=== PATIENT | female | born 1945 | race Caucasian/White ===

== ENCOUNTER 2016-09-05 14:12 | Observation (INO) | payer MEDICARE ==
[~2016-09-05] VITALS: Ht 154.9 cm; Wt 110.9 kg
[2016-09-05] VITALS (10 sets, daily range): BP systolic 96–127; BP diastolic 34–80; PULSE 80–108; RESP 12–23; O2SAT 96–100
[2016-09-05 15:01] LABS: BASOPHILS % (AUTO) 0.2 % (0-3); EOSINOPHILS % (AUTO) 0.9 % (0-5); MONOCYTES % (AUTO) 4.7 % (4-12); Mean Corpuscular Hemoglobin 29.5 pg (27.0-35.0); Mean Corpuscular Volume 90.6 fL (81-100); NEUTROPHILS % (AUTO) 90.1 % (40-74); Platelet Count 188 bil/L (150-400)
--- NOTE | 2016-09-05 15:18 | DRSVH ---
PROCEDURE: X-RAY CHEST ONE VIEW, PORTABLE ([id number]) INDICATIONS: near syncope TECHNIQUE: One view of the chest was acquired. COMPARISON: [facility], , CHEST 2VW, 03/15/2014, 12:50. FINDINGS: Surgical changes and devices: None. Lungs and pleura: No pleural effusions or pneumothorax. Lungs are clear. Large nonreducible hiatal hernia redemonstrated. Mediastinum: Mediastinal contours appear normal. Heart size is normal. Bones and chest wall: No suspicious bony lesions. Overlying soft tissues appear unremarkable. IMPRESSION: Large hiatal hernia. No acute cardiopulmonary process. Dictated by: Antonio Sandra [facility] Interpreted: Mireya Nova MD on 09/05/2016 at 15:12 Approved by: Mireya Nova MD, PhD on 09/05/2016 at 15:15
--- NOTE | 2016-09-05 15:20 | ED.REPORT ---
HPI-General Illness Date of Service Sep 05, 2016 ED Provider: Dr. Scotty Hernandez MD A 71 year old female with a history of hypertension and hyperlipidemia presents to the ED via EMS following a near-syncopal episode that occurred 2 hours prior to arrival. Her symptoms began while she was at work. The episode was also associated with nausea, 1 episode of diarrhea, diaphoresis and pale skin. She felt completely normal prior to symptom onset this afternoon. Patient denies any recent sick contacts. She denies hematochezia, dysuria, chest pain or current abdominal pain. Patient currently takes omeprazole and an unknown BP medication. Nursing Notes Stated Complaint: NEAR SYNCOPE Chief Complaint: Female Abdominal Pain Nursing Notes Reviewed: Yes Allergies: Coded Allergies: Sulfa (Sulfonamide Antibiotics) (Verified Allergy, Unknown, 09/05/16) Scheduled Atorvastatin Calcium (Atorvastatin Calcium) 10 Mg Tablet 10 MG PO QAM Losartan Potassium (Losartan Potassium) 50 Mg Tablet 50 MG PO QAM Omeprazole (Omeprazole) 40 Mg Capsule.dr 40 MG PO QAM General Time Seen by MD: 15:19 Chief Complaint Other (Near-syncope ) Hx Obtained From: Patient Arrived By: Walk-in Sudden in Onset?: Yes Onset Occurred: 1 - 4 hours ago (2 hours prior) Symptom Duration: Since onset Location: No: Abdomen, Chest Associated with: Reports: Diaphoresis, Nausea, Vomiting, Denies: Abdominal pain, Chest pain, Fever Pertinent Negative: Pt denies other symptoms Recent Healthcare: No recent doctor visit, No recent hospitalization Past Medical History Past Medical History Notes: PCP: Dr. Glenis Lira MD Past Medical History Hypertension Hyperlipidemia Reports heart murmur Past Surgical History Gastrocnemius slide lengthening Resection of the posterior calcaneal exostoses w/ Achilles Tendon Smoking History Unknown if Ever Smoker Social History Other Social History: Good social support, Local resident Ambulatory Status Independent Review of Systems Pale skin Full Review of Systems Constitutional: Denies: Chills, Fever Cardiovascular: Denies: Chest pain GI: Reports: Diarrhea, Nausea, Denies: Abdominal pain, Hematochezia Female: Denies: Dysuria Skin: Reports Diaphoresis Neurologic: Reports: Syncope (Near syncope ) Complete sys rev & neg: except as marked. Physical Exam Vital Signs Vital Signs Date Time Temp Pulse Resp B/P Pulse Ox O2 Delivery O2 Flow Rate FiO2 09/05/16 23:05 103 18 96/43 98 Room Air 09/05/16 21:06 36.9 107 21 110/46 96 Room Air 09/05/16 19:52 37.8 09/05/16 19:46 108 23 127/46 97 Room Air 09/05/16 17:30 106 21 120/35 100 09/05/16 17:04 100 23 114/42 100 09/05/16 17:04 104 19 108/59 100 09/05/16 17:00 101 20 114/42 99 09/05/16 16:30 98 21 123/49 99 Room Air 09/05/16 16:15 100 23 122/47 96 Room Air 09/05/16 16:00 96 22 123/34 100 Room Air 09/05/16 14:25 36.4 80 12 126/80 100 Room Air Initial VS: Reviewed Neck: Supple, Non-tender, Full range of motion Extremities: Vascular intact, Neuro intact, No swelling, No tenderness Skin: Warm, Dry, No cyanosis Neurologic: Alert, Oriented, Nonfocal Psychiatric: Mood/affect normal, Behavior normal, Normal thought content General/Constitutional: Awake, Alert, No acute distress Head / Eyes: Atraumatic, Normocephalic, PERRL ENT: Atraumatic, Airway patent Mouth: Positive: Mucous membranes dry Respiratory / Chest: Atraumatic, Breath sounds NL, Breath sounds = bilat, No respiratory distress Cardiovascular: Heart rate NL, Regular rhythm, Heart sounds NL, No gallop, No murmurs, No rubs Abdomen: Atraumatic, Soft, Non-tender, BS normoactive, No distention Interpretation & Diagnostics Lab Results Interpretation Result Diagram: 09/05/16 1452 09/05/16 1452 Test 09/05/16 14:52 White Blood Count 9.8th/mm3 (3.8-10.1) Red Blood Count 4.47mil/mm3 (3.90-5.20) Hemoglobin 13.2g/dL (12.0-15.6) Hematocrit 40.5% (35.0-46.0) Mean Corpuscular Volume 90.6fL (81-100) Mean Corpuscular Hemoglobin 29.5pg (27.0-35.0) Mean Corpuscular Hemoglobin Concent 32.6% (32.0-37.0) Red Cell Distribution Width 13.4% (12.3-15.4) Platelet Count 188bil/L (150-400) Neutrophils (%) (Auto) 90.1% (40-74) Lymphocytes (%) (Auto) 3.9% (14-46) Monocytes (%) (Auto) 4.7% (4-12) Eosinophils (%) (Auto) 0.9% (0-5) Basophils (%) (Auto) 0.2% (0-3) Sodium Level 139mEq/L (134-144) Potassium Level 4.1mEq/L (3.5-5.2) Chloride Level 101mEq/L (97-108) Carbon Dioxide Level 23mmol/L (18-29) Blood Urea Nitrogen 31mg/dL (8-27) Creatinine 0.85mg/dL (0.57-1.00) Estimat Glomerular Filtration Rate 94mL/min (>59) Glucose Level 139mg/dL (60-99) Calcium Level 9.5mg/dL (8.5-10.1) Magnesium Level 1.9mg/dL (1.6-2.6) Total Bilirubin 0.6mg/dL (0.0-1.2) Aspartate Amino Transf (AST/SGOT) 20U/L (0-50) Alanine Aminotransferase (ALT/SGPT) 16U/L (0-32) Alkaline Phosphatase 92U/L (25-165) Troponin T < 0.010ug/L (0.0-0.011) Total Protein 7.2g/dL (6.4-8.4) Albumin 4.4g/dL (3.4-5.0) Hold Franks Top Tube Received (Received) ECG Interpretation ECG Interpretation: Sinus Rhythm Rate 94 Time: 15:15 Interpreted by: ED physician X-Ray Chest Interpretation Chest Xray Interpretation: IMPRESSION: Large hiatal hernia. No acute cardiopulmonary process. Dictated by: Antonio Sandra RRMadisyn Interpreted: Mireya Nova MD on 09/05/2016 at 15:12 Interpretation / Wet Read by: Interpret - Radiologist Re-Eval/Medical Decision Med Decision/Clinical Course 71-year-old female with near syncope followed by vomiting and diarrhea. At Continued to have some nausea here in the emergency department with diarrhea has not recurred. Seemed most likely to be gastroenteritis. Her abdomen is nontender exam and otherwise reassuring she is not orthostatic. Patient felt better after getting ondansetron Phenergan and a liter of saline. She still did not feel steady on her feet however, was not able to ambulate without using a walker to steady herself and does not use a walker at baseline. She and her family were prefer that she was observed overnight and given her unsteadiness and persistent nausea this seems completely reasonable. CODE STATUS was discussed she wishes to be full code. Time of Eval: 17:05 Re-Evaluation/Progress Note: Nausea is still present. She is informed of the various options to keep her hydrated. Time of Eval: 17:45 Patient Status: Mild relief Re-Evaluation/Progress Note: Pt had one episode of emesis prior to the oral nausea medication. Her symptoms have improved. She is informed of her results. Time of Eval: 19:22 Patient Status: Condition improved Re-Evaluation/Progress Note: Pt's nausea has improved and she denies any more episodes of diarrhea. She is agreeable to discharge at this time, however, family is insistent on admission for observation. Time of Eval: 23:07 Patient Status: Condition improved Re-Evaluation/Progress Note: Code status is discussed in the presence of family. She would like to be full code. Consultation : Referral / Consult Name: Roselyn Diaz DO Consulted With: Hospitalist Call Returned at: 21:27 Outside Salesman: Will see patient, Agrees with eval, Agrees with plan, Accepts admit Counseled Regarding: Diagnosis, Lab results, Need for admission Discharge & Departure Primary Impression: Acute gastroenteritis Additional Impression: Vomiting and diarrhea Disposition: ADMITTED TO HOSPITAL Discharge Condition All VS Reviewed: Yes Condition: Improved Referrals: Glenis Lira MD (PCP) Jeniffer Attestation Portions of this note were transcribed by Fabiola Langston. I, Dr. Hernandez personally performed the history, physical exam and medical decision-making; I reviewed and confirmed the accuracy of the information in the transcribed note. Signed by: Jeniffer Andersen, 09/05/16 2210. copies to: Glenis Lira MD, Donald L MD Sep 05, 2016 15:20 FABIOLA LANGSTON Sep 05, 2016 16:02
[2016-09-05 15:33] LABS: TROPONIN T < 0.010 ug/L (0.0-0.011)
[2016-09-05 15:39] LABS: Magnesium 1.9 mg/dL (1.6-2.6)
[2016-09-05] MEDS ORDERED: 0.9% Sodium Chloride 1,000 ML IV ONE ×2 (15:55→21:05)
[2016-09-05] MEDS ORDERED: OMEP40CA36 PO (20:41)
[2016-09-05] MEDS ORDERED: ATOR10TA66 PO (20:41)
[2016-09-05] MEDS ORDERED: LOSA50TA37 PO (20:41)
[2016-09-05] MEDS ORDERED: 0.9% Sodium Chloride 1,000 ML IV SCH (23:06)
[2016-09-05] MEDS ORDERED: Alum-Mag Hydrox-Simeth 30 mL Suspension PO PRN (23:10)
[2016-09-05] MEDS ORDERED: Ondansetron 2 mg/mL 2 mL Inj IVPUSH PRN (23:10)
[2016-09-06 00:24] VITALS: BP 100/51; PULSE 102; RESP 20; O2SAT 98
[2016-09-06 00:30] VITALS: BP 110/69; PULSE 94; RESP 16; O2SAT 96
--- NOTE | 2016-09-06 02:44 | PCM.HPMED ---
Subjective Date of Service Sep 06, 2016 Primary Provider: Admitting Physician: Roselyn Diaz DO Primary Care Physician: Glenis Lira MD Attending Physician: Roselyn Diaz DO Admit Status: From the Emergency Department Chief Complaint: Presyncopal event History of Present Illness: This is a 71-year-old female with past medical history significant for hypertension and hyperlipidemia who presents for presyncopal episode. The patient states that she was in her normal health until yesterday afternoon when she began to feel nauseated. At that time she developed several episodes of diarrhea without hematochezia or melena accompanied by several episodes of vomiting that was nonbloody. After this she felt diaphoretic and coworkers stated that she had pale skin. At that point she felt like she was going to "pass out" but did not lose consciousness. She denies any contacts with similar illness or recent travel outside the country. She denies any chest pain or pressure, confusion, numbness or tingling in extremities, weakness in extremities, visual changes, headache. In the emergency department initial vitals were temperature 36.4 Celsius, pulse 80, respiratory rate 12, blood pressure 126/80, satting at 100% on room air. Initial laboratory values were significant for WBC of 9.8 with neutrophil 90.1% . BUN 31, creatinine 0.5, glucose 139. Troponin less than 0.010. EKG showed sinus rhythm with rate of 90 and QTC of 507. In the emergency department she received 2 boluses of normal saline, Phenergan, and Tylenol. Patient states that after receiving these medications she felt much improved. Allergies Coded Allergies: Sulfa (Sulfonamide Antibiotics) (Verified Allergy, Unknown, 09/05/16) Home Medications Atorvastatin Losartan Omeprazole PMH Hypertension Hyperlipidemia GERD Surgical History Total knee replacement right Family History Mom of "stomach issues." Father of cancer (unknown type) Social History Hx Alcohol Use: No Hx Substance Use: No Smoking Status: Unknown if Ever Smoker Exam Vital Signs Vital Sign - Last Date Time Temp Pulse Resp B/P Pulse Ox O2 Delivery O2 Flow Rate FiO2 09/06/16 00:24 36.9 102 20 100/51 98 Room Air Intake and Output 09/05/16 09/05/16 09/06/16 Cumulative From/Thru 15:00 23:00 07:00 09/05/16 14:25 - 09/06/16 01:42 Intake Total 1000 ml 1000 ml Balance 1000 ml 1000 ml Intake IV Total 1000 ml 1000 ml Exam General: No acute distress, well-developed, well-nourished, appropriately interactive HEENT: Normocephalic, atraumatic. External ears without defect. Pupils equal, round, and reactive to light and accommodation. Anicteric sclerae, moist conjunctivae, and no lid lag. Oropharynx free of erythema and cobble stoning with moist mucosa. Neck: Supple with full range of motion. No jugular venous distension. No bruits. No lymphadenopathy or thyromegaly. Cardiovascular: Regular rate and rhythm with no murmurs, rubs, or gallops appreciated Pulmonary: Clear to auscultation bilaterally with no crackles, wheezes, or rhonchi. Normal respiratory effort with no use of accessory muscles. Abdomen: Bowel tones present. Soft, nontender, nondistended. No hepatosplenomegaly or masses appreciated. Extremities: No clubbing, cyanosis, edema, or lymphadenopathy appreciated. Skin: Normal temperature, turgor, and texture; no rash, ulcers, or subcutaneous nodules appreciated. Neurological: Cranial nerves grossly intact. Normal muscle strength, tone, and bulk. Reflexes, coordination, and sensory function within normal limits. No known gait impairment. Psychiatric: Normal mood and affect. Alert and oriented to person, place, and time. Lab and Diagnostics Result Diagram: 09/05/16 1452 09/05/16 1452 Assessment & Plan This is a 71-year-old female with past medical history significant for hypertension and hyperlipidemia who presents after nausea, vomiting, and diarrhea with subsequent presyncopal event. The presyncopal event was likely due to orthostatic hypotension or vasovagal. Differential includes arrhythmia, myocardial infarction, CVA/TIA. Presyncopal event, present on admission, ongoing: -Patient has no focal neurological deficits. EKG is sinus rhythm. Troponins were negative. -This is likely due to orthostatic hypotension versus vasovagal. -Patient declines telemetry -Possible need for CT of the head discussed the patient and she declines this. -Day team can consider MRI or CT of head. -Trend troponin 2. Long QT, present on admission, ongoing: -QTc of 507 -Avoid QT prolonging medications. -Telemetry ordered. Hypertension, present on admission, ongoing: -On admission blood pressure was 126/80. -Continue losartan Hyperlipidemia, present on admission, ongoing: -Continue atorvastatin. Elevated blood glucose level, present on admission: -A1c ordered. Gastric esophageal reflux disease, present on admission, ongoing: -Omeprazole ordered. DVT prophylaxis with Lovenox. Patient is admitted under observation status with expected length of stay less than 2 midnights due to severity of presenting symptoms, risk of adverse event, and complexity of treatment plan. Pain Evaluation: Adequate Pain Control Resuscitation Status: CPR: Attempt Resuscitation Attending Statement The patient was seen and examined together with house staff on 09/06/2016 and I agree with the history, exam and plan as outlined in the note above. Lui Montenegro DO Sep 06, 2016 02:44 Roselyn Diaz DO Sep 06, 2016 06:53
--- NOTE | 2016-09-06 03:18 | NUR ---
Admit to Room 1027 Patient arrived to room [address] [facility] accompanied by ED staff and co-worker. Patient denies n/v and pain. VSS. Patient answered assessment questions appropriately. Patient oriented to room and call light. Call light within reach. Care continues.
[2016-09-06] MEDS ORDERED: Alum-Mag Hydrox-Simeth 30 mL Suspension PO PRN (03:55)
[2016-09-06] MEDS ORDERED: Polyethylene Glycol (PEG) 17 Gm Powder PO PRN (03:55)
[2016-09-06 05:00] VITALS: BP 132/83; PULSE 89; O2SAT 97
[2016-09-06 06:35] LABS: BASOPHILS % (AUTO) 0 % (0-3); EOSINOPHILS % (AUTO) 0.5 % (0-5); Mean Corpuscular Hemoglobin 28.9 pg (27.0-35.0); Mean Corpuscular Volume 91.4 fL (81-100); NEUTROPHILS % (AUTO) 82.6 % (40-74); Platelet Count 146 bil/L (150-400)
[2016-09-06 06:41] LABS: TROPONIN T 0.01 ug/L (0.0-0.011)
[2016-09-06 08:55] LABS: APPEARANCE,URINE HAZY (CLEAR,HAZY); COLOR,URINE YELLOW (YELLOW); OCCULT BLOOD,URINE NEGATIVE (NEGATIVE); UROBILINOGEN,URINE NORMAL (NORMAL)
[2016-09-06 09:23] LABS: APPEARANCE,URINE HAZY (CLEAR,HAZY); COLOR,URINE YELLOW (YELLOW); OCCULT BLOOD,URINE NEGATIVE (NEGATIVE); UROBILINOGEN,URINE NORMAL (NORMAL)
--- NOTE | 2016-09-06 10:55 | NUR ---
Case Management- CALVILLO explained and signed by patient at 1027AM. Copy given to patient. Original placed in chart. Milvia Montgomery RN/ UR
[2016-09-06 13:19] VITALS: BP 146/70; PULSE 87; RESP 18; O2SAT 95
[2016-09-06] MEDS: 0.9% Sodium Chloride 1,000 ML IV SCH ×2 (14:09→17:13)
--- NOTE | 2016-09-06 14:42 | NUR ---
Social Work: Initial Assessment D: EMR reviewed. Pt is a 71 y/o female Gladys for intractable nausea per H&P. CELIA met with pt and bedside to conduct initial assessment. Pt was alert and oriented x3. SW confirmed pt has completed DPOA/advanced directive ppw and encouraged pt to provide completed copy to the hospital. Pt's primary contact is sister rUiel Chavez ([phone]) and can be contacted for discharge planning. Pt's insurance is [employer] and PCP is Glenis Lira MD. Pt has hx at [facility] in [place]. Pt has HH hx with [facility] for RN PT OT. Pt does not have LT insurance or VA benefits. Pt does not own or use any DME. Pt is independent with ADLs. Pt lives at home alone in a multi-story home - with 4 steps to enter and 13 steps to the second level - in [place]. Pt confirmed her niece will provide transport home via POV when pt is medically stable. SW does not anticipate any discharge needs at this time but will continue to follow if needs arise. A: Pt who is independent at baseline. P: Pt confirmed her niece will provide transport home via POV when pt is medically stable. SW does not anticipate any discharge needs at this time but will continue to follow if needs arise. IDA Grey Addendum: 09/06/16 at 1446 by DISHA COMER SS Amended: Links added.
--- NOTE | 2016-09-06 14:47 | NUR ---
Mobility/Memory Patient feeling weak this shift. Ambulating from bed to toilet with FWW. Exhibits some weakness, but able to complete ADL's. Patient is very forgetful. Needs redirection and consistent verbal reminders.
[2016-09-06 20:52] VITALS: BP 137/81; PULSE 86; RESP 19; O2SAT 97
--- NOTE | 2016-09-06 22:03 | NUR ---
Abdominal Pain Patient complains of 4/10 abdominal pain, and has asked if heat could be tried to soothe stomach upset. Night hospitalist notified, and a K Pad has been ordered for patient, and is being used. Patient is currently sleeping and has not complained of stomach pain since K pad has been placed. Will continue to monitor and continue Q1 hour checks.
[2016-09-07] MEDS: 0.9% Sodium Chloride 1,000 ML IV SCH (00:56)
[2016-09-07 01:10] VITALS: BP 146/87; PULSE 87; RESP 17; O2SAT 96
[2016-09-07 05:29] VITALS: BP 151/80; PULSE 86; RESP 18; O2SAT 95
[2016-09-07] MEDS ORDERED: Pantoprazole 40 mg ER24 Tablet PO SCH (06:30)
[2016-09-07] MEDS ORDERED: LOPE2CAP PO (12:13)
--- NOTE | 2016-09-07 12:13 | PCM.DIMED ---
Discharge Instructions Date of Service Sep 07, 2016 Dates of Hospitalization Sep 05, 2016 at 23:09 Discharge Diagnosis Discharge Diagnosis # Presyncopal event, present on admission, ongoing: #norovirus gastroenteritis #Hypertension, present on admission, ongoing: #Hyperlipidemia, present on admission, ongoing: #Gastric esophageal reflux disease # prediabetes A1c 5.9 Diet Discharge Diet: No restrictions Activity Discharge Activity: Limited until seen by PCP Call your provider Call your provider for: Fever or Chills, Shortness of breath, Bleeding, Chest pain, Vomitting, Excessive diarrhea, Weakness (unilateral) Patient Instructions Patient Instructions You were hospitalized due to viral( Norovirus ) Gastroenteritis. Please keep yourself hydrated. Please follow-up with PCP in 1 week. Follow-up Provider: Glenis Lira MD Follow-up with PCP in: 1 week Brent Parada MD Sep 07, 2016 12:13
--- NOTE | 2016-09-07 12:20 | PCM.DC.MED ---
Discharge Summary Date of Service Sep 07, 2016 Dates of Hospitalization Date of Hospital Admission Sep 05, 2016 at 23:09 Date of Discharge: Sep 07, 2016 Providers: Admitting Physician: Roselyn Diaz DO Primary Care Physician: Glenis Lira MD Attending Physician: Roselyn Diaz DO Diagnosis at Time of Discharge Diagnosis at Time of Discharge # Presyncopal event, present on admission, ongoing: #norovirus gastroenteritis #Hypertension, present on admission, ongoing: #Hyperlipidemia, present on admission, ongoing: #Gastric esophageal reflux disease # prediabetes A1c 5.9 Brief History per [facility] This is a 71-year-old female with past medical history significant for hypertension and hyperlipidemia who presents for presyncopal episode. The patient states that she was in her normal health until yesterday afternoon when she began to feel nauseated. At that time she developed several episodes of diarrhea without hematochezia or melena accompanied by several episodes of vomiting that was nonbloody. After this she felt diaphoretic and coworkers stated that she had pale skin. At that point she felt like she was going to "pass out" but did not lose consciousness. She denies any contacts with similar illness or recent travel outside the country. She denies any chest pain or pressure, confusion, numbness or tingling in extremities, weakness in extremities, visual changes, headache. In the emergency department initial vitals were temperature 36.4 Celsius, pulse 80, respiratory rate 12, blood pressure 126/80, satting at 100% on room air. Initial laboratory values were significant for WBC of 9.8 with neutrophil 90.1% . BUN 31, creatinine 0.5, glucose 139. Troponin less than 0.010. EKG showed sinus rhythm with rate of 90 and QTC of 507. In the emergency department she received 2 boluses of normal saline, Phenergan, and Tylenol. Patient states that after receiving these medications she felt much improved. Hospital Course This is a 71-year-old female with past medical history significant for hypertension and hyperlipidemia who presents after nausea, vomiting, and diarrhea with subsequent presyncopal event. The presyncopal event was likely due to orthostatic hypotension or vasovagal. Differential includes arrhythmia, myocardial infarction, CVA/TIA. # Presyncopal event due to dehydration due to gastroenteritis, present on admission, ongoing: -Patient has no focal neurological deficits. EKG is sinus rhythm. Troponins were negative. -This is likely due to orthostatic hypotension # NOROVIRUS gastroenteritis -Supportive care. Advised on keeping hydrated and hand hygiene -Stool PCR positive for noro virus #Long QT, present on admission, ongoing: -QTc of 507 -Avoid QT prolonging medications. #Hypertension, present on admission, ongoing: -On admission blood pressure was 126/80. -Continue losartan upon discharge #Hyperlipidemia, present on admission, ongoing: -Continue atorvastatin. #Prediabetes/Elevated blood glucose level, present on admission: -A1c 5.9 #Gastric esophageal reflux disease, present on admission, ongoing: -Omeprazole ordered. Discharged home Condition on discharge stable Exam Vital Signs (Last) Date Time Temp Pulse Resp B/P Pulse Ox O2 Delivery O2 Flow Rate FiO2 09/07/16 05:29 37.1 86 18 151/80 95 Room Air Exam General: No acute distress, well-developed, well-nourished, appropriately interactive HEENT: Normocephalic, atraumatic. External ears without defect. Pupils equal, round, and reactive to light and accommodation. Anicteric sclerae, moist conjunctivae, and no lid lag. Oropharynx free of erythema and cobble stoning with moist mucosa. Neck: Supple with full range of motion. No jugular venous distension. No bruits. No lymphadenopathy or thyromegaly. Cardiovascular: Regular rate and rhythm with no murmurs, rubs, or gallops appreciated Pulmonary: Clear to auscultation bilaterally with no crackles, wheezes, or rhonchi. Normal respiratory effort with no use of accessory muscles. Abdomen: Bowel tones present. Soft, nontender, nondistended. No hepatosplenomegaly or masses appreciated. Extremities: No clubbing, cyanosis, edema, or lymphadenopathy appreciated. Skin: Normal temperature, turgor, and texture; no rash, ulcers, or subcutaneous nodules appreciated. Neurological: Cranial nerves grossly intact. Normal muscle strength, tone, and bulk. Reflexes, coordination, and sensory function within normal limits. No known gait impairment. Psychiatric: Normal mood and affect. Alert and oriented to person, place, and time. Test 09/05/16 14:52 09/06/16 03:30 09/06/16 05:50 09/06/16 08:37 Magnesium Level 1.9mg/dL (1.6-2.6) Hold Franks Top Tube Received (Received) Hold Urine Received (Received) White Blood Count 4.3th/mm3 (3.8-10.1) Red Blood Count 3.74mil/mm3 (3.90-5.20) Hemoglobin 10.8g/dL (12.0-15.6) Hematocrit 34.2% (35.0-46.0) Mean Corpuscular Volume 91.4fL (81-100) Mean Corpuscular Hemoglobin 28.9pg (27.0-35.0) Mean Corpuscular Hemoglobin Concent 31.6% (32.0-37.0) Red Cell Distribution Width 13.7% (12.3-15.4) Platelet Count 146bil/L (150-400) Neutrophils (%) (Auto) 82.6% (40-74) Lymphocytes (%) (Auto) 10.7% (14-46) Monocytes (%) (Auto) 6.0% (4-12) Eosinophils (%) (Auto) 0.5% (0-5) Basophils (%) (Auto) 0% (0-3) Sodium Level 138mEq/L (134-144) Potassium Level 3.6mEq/L (3.5-5.2) Chloride Level 104mEq/L (97-108) Carbon Dioxide Level 21mmol/L (18-29) Blood Urea Nitrogen 25mg/dL (8-27) Creatinine 0.76mg/dL (0.57-1.00) Estimat Glomerular Filtration Rate 107mL/min (>59) Glucose Level 101mg/dL (60-99) Hemoglobin A1c 5.9% (4.8-5.6) Calcium Level 8.0mg/dL (8.5-10.1) Total Bilirubin 0.7mg/dL (0.0-1.2) Aspartate Amino Transf (AST/SGOT) 18U/L (0-50) Alanine Aminotransferase (ALT/SGPT) 14U/L (0-32) Alkaline Phosphatase 60U/L (25-165) Troponin T 0.010ug/L (0.0-0.011) Total Protein 5.5g/dL (6.4-8.4) Albumin 3.4g/dL (3.4-5.0) Urine Color Yellow (YELLOW) Urine Appearance Hazy (CLEAR,HAZY) Urine pH 5.0 (5.0-8.0) Urine Specific [place] 1.025 (1.003-1.035) Urine Protein Negativemg/dL (NEG,TRACE) Urine Glucose (UA) Negativemg/dL (NEGATIVE) Urine Ketones Negativemg/dL (NEGATIVE) Urine Occult Blood Negative (NEGATIVE) Urine Nitrite Negative (NEGATIVE) Urine Bilirubin Negative (NEGATIVE) Urine Urobilinogen Normalmg/dL (NORMAL) Urine Leukocyte Esterase Negative (NEGATIVE) Urine RBC 0-2/hpf (0-2) Urine WBC 0-5/hpf (0-5) Urine Epithelial Cells Occasional/hpf (NONE-MOD) Urine Crystals None seen (NONE SEEN) Urine Bacteria Moderate/hpf (NONE-FEW) Urine Hyaline Casts None/lpf (NONE) Urine Granular Casts None seen (NONE SEEN) Urine Waxy Casts None seen (NONE SEEN) Urine Red Blood Cell Casts None seen (NONE SEEN) Urine White Blood Cell Casts None seen (NONE SEEN) Urine Mucus Present (None Seen) Urine Trichomonas None seen (NONE SEEN) Urine Yeast None (NONE SEEN) Urinalysis Comment None Urine Culture Reflexed Indicated Discharge Medications Discharge Medications Atorvastatin Calcium (Atorvastatin Calcium) 10 Mg Tablet 10 MG PO QAM (Reported ) Losartan Potassium (Losartan Potassium) 50 Mg Tablet 50 MG PO QAM (Reported) Omeprazole (Omeprazole) 40 Mg Capsule.dr 40 MG PO QAM (Reported) As needed Loperamide (Loperamide) 2 Mg Capsule 2 MG PO Q6H PRN PRN For Diarrhea or Loose Stool Prescribed by: BIB HALL MD Followup Plan Disposition: Home Discharge Diet: No restrictions Discharge Activity: Limited until seen by PCP Patient Instructions You were hospitalized due to viral( Norovirus ) Gastroenteritis. Please keep yourself hydrated. Please follow-up with PCP in 1 week. Follow-up Provider: Glenis Lira MD Follow-up with PCP in: 1 week copies to: Glenis Lira MD, Melaku MD Sep 07, 2016 12:20
--- NOTE | 2016-09-07 15:52 | NUR ---
DISCHARGE Patient discharged at 1540, left with friend who will drive her home. Patient denies pain, shortness of breath, and nausea. IV removed intact, medication reviewed, new Rx provided, and patient verbalized understanding. Written material provided on Loperamide, diarrhea, and Norovirus. Discharge activity and follow up with PCP reviewed with patient.
== END 2016-09-07 15:36 | disposition home or self-care (01) ==
LOC: SED 14:12 → OSC 23:09
PROVIDERS: ADMIT Internal Medicine; ATTEND Internal Medicine
DX: K52.9 Noninfective gastroenteritis and colitis, unspecified (principal); R55 Syncope and collapse; A08.11 Acute gastroenteropathy due to Norwalk agent; I10 Essential (primary) hypertension; E78.5 Hyperlipidemia, unspecified; K21.9 Gastro-esophageal reflux disease without esophagitis; R73.03 Prediabetes; R73.9 Hyperglycemia, unspecified; R11.2 Nausea with vomiting, unspecified; Z88.8 Allergy status to other drugs, medicaments and biological substances; Z96.651 Presence of right artificial knee joint
CPT/HCPCS: 36415; 71010; 80053; 81000; 83036; 83735; 84484; 85025; 87086; 87088; 87507; 93005; 96360; 99285; G0378; J7030; Q0169